=== PATIENT | female | born 1995 | race Caucasian/White ===

== ENCOUNTER → 2017-12-05 | Outpatient (CLI) | payer BC ==
--- NOTE | 2017-12-05 12:29 | Diagnostic Imaging Report ---
PROCEDURE: CT abdomen and pelvis with contrast. TECHNIQUE: Multiple contiguous axial images were obtained through the abdomen and pelvis after administration of intravenous contrast. INDICATION: Right lower quadrant pain. COMPARISON: Exam compared to 11/25/2014. FINDINGS: Gallbladder is surgically absent; no pathological dilatation of the biliary ducts. The patient's lung bases are nonacute. The liver, spleen, adrenals, and pancreas are unremarkable. The unobstructed kidneys appear normal. There is no bowel, biliary, or urinary tract obstruction. There is a minute amount of pelvic free fluid isolated to the cul-de-sac as a common physiologic finding in a female patient of this age. The uterus and adnexa appear unremarkable, and the urinary bladder is unremarkable. No abscess, hematoma, or other fluid collection. No abdominal wall defect. The osseous structures are nonacute. Since the prior, there has been interval appendectomy. IMPRESSION: Postsurgical changes and trace pelvic physiologic free fluid. No acute or suspicious abnormality identified. Dictated by: Dictated on workstation # [id number]
== END ==
LOC: RAD 09:06
PROVIDERS: ATTEND Family Medicine
DX: R10.31 Right lower quadrant pain (principal); Z90.49 Acquired absence of other specified parts of digestive tract
CPT/HCPCS: 74177